=== PATIENT | male | born 2005 | race Two or more races ===

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

== ENCOUNTER 2025-03-12 08:08 | Emergency (ER) | payer OTHER, SELFPAY ==
--- NOTE | 2025-03-12 | ECG_ITS ---
Test Reason : chest pain Blood Pressure : */* mmHG Vent. Rate : 71 BPM Atrial Rate : 71 BPM P-R Int : 110 ms QRS Dur : 88 ms QT Int : 354 ms P-R-T Axes : 45 36 18 degrees QTcB Int : 384 ms Sinus rhythm with short MN ST elevation, consider early repolarization Borderline ECG No previous ECGs available Referred By: Generic ED Physician Electronically Signed By: Edwardo Ahmadi
[2025-03-12 08:16] VITALS: BP 133/60; PULSE 75; RESP 18; TEMP 36.7; O2SAT 98; BMI 20.9
--- NOTE | 2025-03-12 08:27 | ED_ITS ---
HPI - Chest Pain General Chief Complaint: Chest Pain Stated Complaint: CP, dizzy Time Seen by Provider: 03/12/25 08:26 Source: patient Mode of arrival: ambulatory Limitations: no limitations History of Present Illness ED Provider: Dr. J Luis Long HPI narrative: 19-year-old male with no significant past medical history who presents emergency department for evaluation of left-sided chest pain that started at 07:20 hours while the patient was at work. 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 He had a gradual onset of sharp pain located in his left anterior chest which was worse with breathing. He states the pain was intermittent in last minutes but then would resolve. He states he has had similar pain in the past. At the time of evaluation he states this pain was 6/10. He denied fever, chills, cough, shortness of breath or dyspnea on exertion. He states he has had slight rhinorrhea with no sore throat. He has had nausea but no vomiting. Related Data Previous Rx's ?Medication ?Instructions ?Recorded diphenhydramine HCl 25 mg capsule 25 mg PO TID PRN all ergic reaction 02/02/21 (Allergy (diphenhydramine)) #10 caps prednisone 20 mg tablet 20 mg PO BID #10 tabs azithromycin 250 mg tablet See Rx Instructions PO .COM PLEX #6 11/01/24 tabs benzonatate 100 mg capsule 100 mg PO BID PRN cough #20 caps 11/01/24 prednisone 20 mg tablet 40 mg (2 x 20 mg) PO DAILY 5 days 11/01/24 #10 tabs Allergies Allergy/AdvReac Type Severity Reaction Status Date / Time No Known Allergies Allergy Verified 03/12/25 08:17 Review of Systems 2 Review of Systems: Yes all other systems are reviewed and are negative [facility] Past Medical History [facility] Narrative: social history: He denies tobacco use. He occasionally drinks alcohol. He denies drug use. Medical History No acute medical problems Surgical History No history of previous surgery Social History Social History Alcohol intake: current Alcohol intake frequency: holidays/special occasions only Smoked in Last 30 Days: No Use of substances other than those prescribed or required for medical reasons: No Advance Directives: No Advance Directives Information Provided: Yes Do you have a plan to hurt others: No Plan Physical Exam 2 Vital Signs: Vital Signs: Last Vital Signs Temp 98.1 F 03/12/25 13:57 Pulse 80 03/12/25 13:57 Resp 16 03/12/25 13:57 BP 119/67 03/12/25 13:57 Pulse Ox 100 03/12/25 13:57 O2 Del Method Room Air 03/12/25 13:57 BMI result Body Mass Index 20.9 Vital signs were normal Exam: General: Awake, alert in no distress Head: Normocephalic, atraumatic EENT: PERRL, Lids normal, sclera normal, conjunctiva normal, nose normal , ears normal, throat without erythema or exudates Neck: Supple, no adenopathy Lung: breath sounds symmetric, no wheezing, rales or rhonchi Chest: symmetric movement, patient has tenderness palpation of his left anterior costochondral joints Heart: regular rate and rhythm, normal S1, S2 no murmurs or rubs Abdomen: soft, non-tender, nondistended, normal bowel sounds Back: no vertebral tenderness, no CVAT Extremities: no deformities, moves all extremities symmetrically Neuro: Awake, alert, oriented, normal speech, cranial nerves intact, moves all extremities symmetrically Psych: Pleasant, cooperative Medications Administered Discontinued Medications Generic Name Dose Route Start Last Admin Trade Name Freq PRN Reason Stop Dose Admin Ketorolac Tromethamine 15 mg 03/12/25 08:36 03/12/25 08:51 Ketorolac Tromethamine 15 Mg/Ml Vial IVPUSH 03/12/25 08:37 15 mg ONCE STA Administration Medical Decision Making Medical Decision Making MDM Narrative: 19-year-old male with no significant past medical history who presents emergency department for evaluation of left-sided chest pain that started at 07:20 hours while the patient Was working as a prep 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 review of systems were unremarkable. Vital signs were normal. Exam did reveal left anterior chest wall tenderness over the costochondral joints. Differential diagnosis: Includes but is not limited to myocardial infarction, myocardial ischemia, chest wall pain, costochondritis, pneumonia, pleurisy, anemia, electrolyte abnormalities Course: My independent interpretation of the patient's evaluation is as follows: CBC was normal. Bicarb elevated 30. LFTs were normal. First troponin was 8.9, repeat troponin was 7.1 suggests that the patient has not had myocardial infarction or myocardial injury is the cause of his pain. EKG was unremarkable. Patient's symptoms are most likely caused by chest wall inflammation/ costochondritis. I did discuss this with the patient. Patient was advised to take ibuprofen 40 mg 3 times a day as needed for pain. He was given printed and verbal instructions and discharged home. Differential Diagnosis Differential Diagnoses: The differential diagnosis associated with the presentation includes ( see above) Admission/Observation Consideration of admission/observation: Escalation of care including admission/observation considered ( yes) Lab Data MDM Lab Attestation statement: I reviewed the patient's lab results. 03/12/25 08:48 03/12/25 08:48 Labs: Lab Results 03/12/25 03/12/25 Range/Units 08:48 12:39 WBC 6.0 (4.8-10.8) X10*3/uL RBC 5.29 (4.60-5.80) X10*6/uL Hgb 15.2 (14.0-18.0) g/dl Hct 44.6 (42.0-52.0) % MCV 84.3 (80.0-98.0) fL MCH 28.7 (27.0-33.0) pg MCHC 34.1 (31.0-36.0) g/dl RDW 12.4 (11.0-16.0) % Plt Count 227 (160-400) X10*3/uL MPV 9.1 L (9.4-12.4) fL Immature Gran % (Auto) 0.3 (0.0-0.4) % Neut % (Auto) 51.2 (45-73) % Lymph % (Auto) 32.4 (20-40) % White % (Auto) 8.9 (2-11) % Eos % (Auto) 6.7 H (0-4) % Baso % (Auto) 0.5 (0-2) % Lymph # (Auto) 1.9 (1.2-4.9) X10*3/uL White # (Auto) 0.5 (0.1-1.2) X10*3/uL Eos # (Auto) 0.4 (0.0-0.4) X10*3/uL Baso # (Auto) 0.0 (0.0-0.2) X10*3/uL Abs Immat Gran (auto) 0.02 (0.00-0.03) X10*3/uL Absolute Neuts (auto) 3.1 (2.0-8.3) x10*3/uL Absolute Nucleated RBC 0.000 (0.0-0.012) X10*3/uL Nucleated RBC % (auto) 0.0 (0.0-0.2) /100WBC Sodium 142 (135-145) mmol/L Potassium 4.3 (3.3-5.1) mmol/L Chloride 107 (96-108) mmol/L Carbon Dioxide 30 H (22-29) mmol/L Anion Gap 9 L (12-20) BUN 12 (9-16) mg/dL Creatinine 0.82 (0.5-1.4) mg/dL Estim Creat Clear Calc 139.4 Estimated GFR > 60 Random Glucose 67 (60-115) mg/dL Calcium 9.4 (8.4-10.2) mg/dL Total Bilirubin 0.6 (0.0-1.0) mg/dL AST 22 (5-37) U/L ALT 17 (0-40) U/L Alkaline Phosphatase 54 (39-117) U/L Troponin I High Sens 8.9 7.1 (<3.5-35.0) ng/L Total Protein 7.1 (6.5-8.0) g/dL Albumin 4.5 (3.5-5.0) g/dL Independent Interpretation I performed an independent interpretation of an: EKG Interpretation: My independent interpretation of the patient's 12 lead EKG done on 04/08/2025 at 08:13 hours is as follows: Normal sinus rhythm with a rate of 71, normal MD interval, QRS duration QTC interval, no ST segment elevation, no ST segment depression, no significant T-wave abnormalities, no PACs, no PVCs Discharge Plan Discharge Clinical Impression: Chest pain Patient Disposition: Home, Self-Care Additional Instructions: Your EKG was normal Your blood work was unremarkable which is reassuring Your symptoms are most likely caused by inflammation of your joints or muscles of your chest wall or possibly from your stomach Take ibuprofen 200 mg pills, 2 pills every 6 hours as needed for pain or fever. Follow-up with your doctor in 2 days. Please return to the emergency department if your symptoms get worse or if you develop any symptoms that are concerning to you. Prescriptions: No Action prednisone 20 mg tablet 20 mg PO BID Qty: 10 0RF diphenhydramine HCl [Allergy (diphenhydramine)] 25 mg capsule 25 mg PO TID PRN (Reason: allergic reaction) Qty: 10 0RF azithromycin 250 mg tablet See Rx Instructions PO .COMPLEX Qty: 6 0RF Rx Instructions: For 250 mg dose pack: take 500 mg today (day 1), then 250 mg for 4 days (days 2-5) prednisone 20 mg tablet 40 mg PO DAILY 5 Days Qty: 10 0RF benzonatate 100 mg capsule 100 mg PO BID PRN (Reason: cough) Qty: 20 0RF Interventions: ED Discharge Assessment Last Done: 03/12/25 13:57 Discharge Date/Time: 03/12/25 13:58 Print Language: Uz[place]
[2025-03-12 08:52] LABS: MANUAL DIFF FLAG NO
[2025-03-12 08:54] LABS: Hematocrit 44.6 % (42.0-52.0); Hemoglobin 15.2 g/dl (14.0-18.0); Imm Gran Abs Auto 0.02 X10*3/uL (0.00-0.03); Imm Gran Pct Auto 0.3 % (0.0-0.4); Lymphocytes Absolute Auto 1.9 X10*3/uL (1.2-4.9); Mean Corpuscular HGB Conc 34.1 g/dl (31.0-36.0); Mean Corpuscular Hemoglobin 28.7 pg (27.0-33.0); Mean Corpuscular Volume 84.3 fL (80.0-98.0); NRBC Abs Auto 0.000 X10*3/uL (0.0-0.012); NRBC Pct Auto 0.0 /100WBC (0.0-0.2); Platelet Count 227 X10*3/uL (160-400); Red Blood Count 5.29 X10*6/uL (4.60-5.80); White Blood Count 6.0 X10*3/uL (4.8-10.8)
[2025-03-12 09:10] LABS: Alanine Aminotransferase 17 U/L (0-40); Albumin Level 4.5 g/dL (3.5-5.0); Alkaline Phosphatase 54 U/L (39-117); Anion Gap 9 (12-20); Aspartate Amino Transferase 22 U/L (5-37); Blood Urea Nitrogen 12 mg/dL (9-16); Calcium 9.4 mg/dL (8.4-10.2); Carbon Dioxide 30 mmol/L (22-29); Chloride 107 mmol/L (96-108); Creatinine Clr Calc Pharmacy 139.4; Estimated Glomerular Filt Rate > 60; Potassium 4.3 mmol/L (3.3-5.1); Sodium 142 mmol/L (135-145); Total Protein 7.1 g/dL (6.5-8.0)
[2025-03-12 09:16] LABS: Troponin-I High Sensitivity 8.9 ng/L (<3.5-35.0)
[2025-03-12 10:44] VITALS: BP 124/63; PULSE 61; RESP 16; O2SAT 99
[2025-03-12 12:35] VITALS: BP 119/67; PULSE 80; RESP 16; O2SAT 100
[2025-03-12 13:05] LABS: Troponin-I High Sensitivity 7.1 ng/L (<3.5-35.0)
[2025-03-12 13:57] VITALS: BP 119/67; PULSE 80; RESP 16; TEMP 36.7; O2SAT 100
== END 2025-03-12 13:58 | disposition home or self-care (01) ==
PROVIDERS: Emergency Provider Emergency Medicine Emergency Medical Services
DX: R07.9 Chest pain, unspecified (principal); R42 Dizziness and giddiness
CPT/HCPCS: 36415; 80053; 84484; 85025; 93005; 96374; 99284; 99285; J1885

== ENCOUNTER → 2025-03-12 08:13 | Outpatient (BNV) | payer OTHER, SELFPAY | PROVIDERS: Emergency Provider Emergency Medicine Emergency Medical Services; Visit Provider Internal Medicine Cardiovascular Disease | DX: R07.9 Chest pain, unspecified (principal) | CPT/HCPCS: 93010 ==